=== PATIENT | male | born 1990 | race Hispanic/Latino ===

== ENCOUNTER 2018-10-01 16:40 | Inpatient (IN) | payer BC | END 2018-10-09 19:35 | disposition home or self-care (01) | LOC: EDH 16:40 → EDHIP 16:41 → 4CH 20:44 | DX: I13.2 Hypertensive heart and chronic kidney disease with heart failure and with stage 5 chronic kidney disease, or end stage renal disease (principal); N18.6 End stage renal disease; I50.21 Acute systolic (congestive) heart failure; N04.9 Nephrotic syndrome with unspecified morphologic changes; L03.311 Cellulitis of abdominal wall; N17.9 Acute kidney failure, unspecified; I16.9 Hypertensive crisis, unspecified; I42.9 Cardiomyopathy, unspecified; I42.0 Dilated cardiomyopathy ==

== ENCOUNTER → 2018-12-21 | Outpatient (CLI) | payer BC ==
[~2018-12-21] MED LIST: ALPR0.255 PO; CARV12.511 PO; CLON0.2T PO; DOCU100T8 PO; DOXA4TAB3 PO; FURO40TA5 PO; HYDR100T27 PO; [UNRECOGNIZED DRUG - CODE] TD
== END | disposition home or self-care (01) ==
LOC: RAH 09:21
PROVIDERS: ATTEND Internal Medicine Cardiovascular Disease
DX: I51.7 Cardiomegaly (principal); R53.83 Other fatigue
CPT/HCPCS: 93306